=== PATIENT | male | born 1975 | race Caucasian/White ===

== ENCOUNTER 2017-11-25 20:22 | Emergency (ER) | payer SELFPAY ==
[~2017-11-25] VITALS: Ht 170.2 cm; Wt 95.3 kg
[2017-11-25] MEDS ORDERED: IPRATROPIUM BROMIDE 0.02% 2.5 ML NEB NEB STA (20:45)
[2017-11-25] MEDS ORDERED: HYDROCODONE/CHLORPHENIRAMINE 5 ML LIQCR PO PRN (20:45)
[2017-11-25] MEDS ORDERED: DEXAMETHASONE SOD PHOS 10 MG/1 ML VIAL INJ ONE (20:45)
[2017-11-25] MEDS ORDERED: ALBUTEROL SULF 0.083% NEB SOLN 3 ML NEB NEB STA (20:45)
--- NOTE | 2017-11-25 21:15 | Diagnostic Imaging Report ---
CHEST 2 VIEWS, Technique: CHEST 2 VIEWS Comparison: None Clinical history: Cough DISCUSSION: Normal appearance of the heart, mediastinum, lungs and pleural spaces. IMPRESSION: No acute abnormality Signed by: Dr Seda Lam MD on 11/25/2017 9:12 PM
[2017-11-25 22:00] VITALS: BP 145/87
== END 2017-11-25 22:01 | disposition home or self-care (01) ==
LOC: ER 20:22
DX: R05 Cough (principal); J20.9 Acute bronchitis, unspecified
CPT/HCPCS: 71046; 94640; 99283; J1100

== ENCOUNTER 2022-04-12 18:41 | Emergency (ER) | payer OTHER ==
[~2022-04-12] VITALS: Ht 180.3 cm; Wt 104.3 kg
[2022-04-12] MEDS ORDERED: ACETAMINOPHEN500 MG PO (20:43)
[2022-04-12] MEDS ORDERED: IBUPROFEN200 MG PO (20:43)
[2022-04-12 21:38] VITALS: BP 155/100
== END 2022-04-12 21:38 | disposition home or self-care (01) ==
LOC: FSED 18:44
DX: S93.492A Sprain of other ligament of left ankle, initial encounter (principal); M25.522 Pain in left elbow; M25.562 Pain in left knee; W18.30XA Fall on same level, unspecified, initial encounter; Y99.0 Civilian activity done for income or pay
CPT/HCPCS: 99283